=== PATIENT | female | born 1955 | race African-American/Black ===

== ENCOUNTER 2019-02-19 08:55 | Emergency (ER) | payer MEDICAID ==
[~2019-02-19] VITALS: Ht 160 cm; Wt 108.0 kg
[2019-02-19 10:52] LABS: BASOPHILS % 0.8 % (0.0-2.0); EOSINOPHILS % 1.6 % (0.0-5.0); HEMATOCRIT. 45.4 % (36.0-48.0); HEMOGLOBIN. 14.8 g/dL (12.0-16.0); LYMPHOCYTES % 31.6 % (20.0-50.0); MEAN CORPUSCULAR HEMOGLOBIN 29.2 pg (28.0-32.0); MEAN CORPUSCULAR VOLUME 89.6 fL (81.0-99.0); MEAN PLATELET VOLUME 8.1 fl (7.4-10.4); MONOCYTES % 5.4 % (2.0-8.0); NEUTROPHILS % 60.6 % (40.0-76.0); PLATELET 270 x1000/uL (130-400); RED BLOOD CELL COUNT 5.07 mill/uL (4.2-5.4); RED CELL DISTRIBUTION WIDTH 14.2 % (11.6-14.6)
[2019-02-19 10:57] LABS: CHLORIDE 111 mEq/L (98-107)
[2019-02-19] MEDS ORDERED: IOHEXOL-300 100 ML BOTTLE ONE (12:59)
[2019-02-19 14:07] VITALS: BP 160/88
== END 2019-02-19 14:09 | disposition home or self-care (01) ==
LOC: ER 08:55
DX: R22.1 Localized swelling, mass and lump, neck (principal); I10 Essential (primary) hypertension; F12.10 Cannabis abuse, uncomplicated; Z87.891 Personal history of nicotine dependence; Z98.890 Other specified postprocedural states; Z91.013 Allergy to seafood
CPT/HCPCS: 36415; 70491; 71260; 80053; 85025; 85610; 99284; Q9967